=== PATIENT | female | born 1960 | race Caucasian/White ===

== ENCOUNTER 2019-01-03 08:57 | Emergency (ER) | payer BC ==
[~2019-01-03] VITALS: Ht 165.1 cm; Wt 77.1 kg
[2019-01-03] MEDS ORDERED: ABILIFY10 MG PO (09:08)
[2019-01-03] MEDS ORDERED: LEXAPRO 10 MG T10 M2 PO (09:09)
[2019-01-03 10:49] VITALS: BP 128/71
== END 2019-01-03 10:51 | disposition home or self-care (01) ==
LOC: ER 08:57
DX: R51 Headache (principal); M54.2 Cervicalgia; Z90.89 Acquired absence of other organs; V89.2XXA Person injured in unspecified motor-vehicle accident, traffic, initial encounter; Y93.I9 Activity, other involving external motion; Y92.89 Other specified places as the place of occurrence of the external cause; Y99.8 Other external cause status

== ENCOUNTER → 2020-05-10 | Outpatient (CLI) | payer OTHER ==
[~2020-05-10] MED LIST: ABILIFY10 MG PO; LEXAPRO 10 MG T10 M2 PO
== END ==
LOC: CAT 08:27
PROVIDERS: ATTEND Nurse Practitioner
DX: Z13.6 Encounter for screening for cardiovascular disorders (principal); I25.10 Atherosclerotic heart disease of native coronary artery without angina pectoris; E78.00 Pure hypercholesterolemia, unspecified

== ENCOUNTER → 2021-04-12 | Outpatient (CLI) | payer OTHER | LOC: CAT 08:48 | PROVIDERS: ATTEND Nurse Practitioner | DX: Z13.6 Encounter for screening for cardiovascular disorders (principal); I25.10 Atherosclerotic heart disease of native coronary artery without angina pectoris; E78.00 Pure hypercholesterolemia, unspecified ==

== ENCOUNTER → 2021-04-12 | Outpatient (CLI) | payer OTHER | LOC: BC 08:28 | PROVIDERS: ATTEND Nurse Practitioner | DX: Z12.31 Encounter for screening mammogram for malignant neoplasm of breast (principal) ==